=== PATIENT | male | born 1985 | race Caucasian/White ===

== ENCOUNTER 2017-05-25 11:17 | Emergency (ER) | payer OTHER ==
[2017-05-25 11:25] VITALS: BP 137/72; PULSE 88; RESP 18; TEMP 97.2
--- NOTE | 2017-05-25 11:51 | ED ---
ENT HPI - General Chief complaint: Dental/Oral Stated complaint: DENTAL PAIN, ABSCESS Time Seen by Provider: 05/25/17 11:26 Source: patient, RN notes reviewed Mode of arrival: ambulatory Limitations: no limitations - History of Present Illness Initial comments: 31-year-old male presents emergency Department with chief complaint of right lower dental pain. Patient states he has had dental pain and swelling over last couple days. Patient's had poor dentition and states that he's had dental infections in the past. Patient denies fever, chills, headache, dizziness, neck stiffness or neck pain. He has not contacted his dentist at this time. - Related Data Previous Rx's Medication Instructions Recorded Hydrocodone/Acetaminophen [[place] 1 tab PO Q6HR PRN #20 tab 05/25/17 5-325] Penicillin V Potassium [Pen Vee K] 500 mg PO QID #40 tab 05/25/17 Allergies Allergy/AdvReac Type Severity Reaction Status Date / Time No Known Allergies Allergy Verified 05/25/17 11:42 Review of Systems ROS Statement: Those systems with pertinent positive or pertinent negative responses have been documented in the HPI. ROS Other: All systems not noted in ROS Statement are negative. Past Medical History Past Medical History: No Reported History Additional Past Medical History / Comment(s): SCOLIOSIS. ARTHRITIS. HEADACHES History of Any Multi-Drug Resistant Organisms: None Reported, MRSA Date of last positivie culture/infection: 2014 MDRO Source:: thigh Additional Past Surgical History / Comment(s): MOLE REMOVED Past Psychological History: ADD/ADHD, Anxiety, Bipolar Smoking Status: Current every day smoker Past Alcohol Use History: Rare Past Drug Use History: None Reported General Exam Limitations: no limitations General appearance: alert, in no apparent distress Head exam: Present: atraumatic, normocephalic, normal inspection Eye exam: Present: normal appearance, PERRL, EOMI. Absent: scleral icterus, conjunctival injection, periorbital swelling ENT exam: Present: mucous membranes moist. Absent: normal exam, normal oropharynx (Right lower dental swelling, poor dentition, no drainable abscess noted) Neck exam: Present: normal inspection, full ROM. Absent: tenderness, meningismus, lymphadenopathy Respiratory exam: Present: normal lung sounds bilaterally. Absent: respiratory distress, wheezes, rales, rhonchi, stridor Cardiovascular Exam: Present: regular rate, normal rhythm, normal heart sounds. Absent: systolic murmur, diastolic murmur, rubs, gallop, clicks Course Vital Signs 05/25/17 11:21 Temperature 97.2 F L Pulse Rate 88 Respiratory 18 Rate Blood Pressure 137/72 O2 Sat by Pulse 100 Oximetry Medical Decision Making - Medical Decision Making 31-year-old male presented emergency from for dental pain, facial swelling. Patient has a dental infection was started on antibiotics, pain medication advised follow-up with dentist within 2 days return if symptoms worsen. Disposition Clinical Impression: Dental abscess, Toothache Disposition: HOME SELF-CARE Condition: Stable Instructions: Dental Abscess (ED) Additional Instructions: Please return to the Emergency Department if symptoms worsen or any other concerns. Prescriptions: Hydrocodone/Acetaminophen [[place] 5-325] 1 tab PO Q6HR PRN #20 tab PRN Reason: Pain Penicillin V Potassium [Pen Vee K] 500 mg PO QID #40 tab Referrals: Edwin Roland MD [Primary Care Provider] - 1-2 days Time of Disposition: 11:50
== END 2017-05-25 12:08 | disposition home or self-care (01) ==
LOC: EC 11:17
DX: K04.7 Periapical abscess without sinus (principal); F17.200 Nicotine dependence, unspecified, uncomplicated; Z86.14 Personal history of Methicillin resistant Staphylococcus aureus infection
CPT/HCPCS: 99282

== ENCOUNTER 2017-09-10 18:03 | Emergency (ER) | payer OTHER ==
[2017-09-10 18:11] VITALS: BP 146/94; PULSE 87; RESP 17; TEMP 97.5
[2017-09-10] MEDS ORDERED: ACETAMINOPHEN TAB 500 MG TAB PO STA (18:29)
--- NOTE | 2017-09-10 18:54 | XR ---
Exam: Left shoulder complete TECHNIQUE: 4 views left shoulder were obtained. HISTORY: Left shoulder pain. FINDINGS: No acute fracture subluxation is identified. Visualized soft tissue structures are unremarkable. IMPRESSION: No abnormality.
--- NOTE | 2017-09-10 19:01 | ED ---
Upper Extremity HPI - General Chief Complaint: Extremity Injury, Upper Stated Complaint: Shoulder Pain Time Seen by Provider: 09/10/17 18:15 Source: patient Mode of arrival: ambulatory Limitations: no limitations - History of Present Illness Initial Comments: 32-year-old male patient presents to the emergency department today for evaluation of left shoulder pain. Patient states that the pain started around 3 PM after he got home from community service. States that he was clearing a lot of brush from the cemeteries this afternoon. He states that his shoulder feels weird and he knows something is wrong with it. He reports increased pain with movement. He tries any known injury to the shoulder. Denies any numbness or tingling in the left upper extremity. He denies taking anything for his discomfort. Patient denies any headache, neck pain, back pain, chest pain, shortness of breath, dizziness, weakness, abdominal pain, nausea, vomiting, or difficulties with bowel movements or urination. - Related Data Home Medications Medication Instructions Recorded Confirmed Aspirin EC [Ecotrin Low Dose] 243 mg PO ONCE PRN 09/10/17 09/10/17 Previous Rx's Medication Instructions Recorded Ibuprofen [Motrin] 600 mg PO Q8HR PRN #30 tab 09/10/17 Allergies Allergy/AdvReac Type Severity Reaction Status Date / Time No Known Allergies Allergy Verified 09/10/17 18:14 Review of Systems ROS Statement: Those systems with pertinent positive or pertinent negative responses have been documented in the HPI. ROS Other: All systems not noted in ROS Statement are negative. Past Medical History Past Medical History: No Reported History Additional Past Medical History / Comment(s): SCOLIOSIS. ARTHRITIS. HEADACHES History of Any Multi-Drug Resistant Organisms: None Reported, MRSA Date of last positivie culture/infection: 2014 MDRO Source:: thigh Additional Past Surgical History / Comment(s): MOLE REMOVED Past Psychological History: ADD/ADHD, Anxiety, Bipolar Smoking Status: Current every day smoker Past Alcohol Use History: Rare Past Drug Use History: None Reported General Exam Limitations: no limitations General appearance: alert, in no apparent distress, other (this is a well- developed, well-nourished adult male patient in no acute distress. Vital signs upon presentation are temperature 97.5F, pulse 87, respirations 17, blood pressure 146/94, pulse ox 96% on room air.) Eye exam: Present: normal appearance, PERRL, EOMI. Absent: scleral icterus, conjunctival injection, periorbital swelling ENT exam: Present: normal exam, normal oropharynx, mucous membranes moist Neck exam: Present: normal inspection, full ROM. Absent: tenderness, meningismus, lymphadenopathy Respiratory exam: Present: normal lung sounds bilaterally. Absent: respiratory distress, wheezes, rales, rhonchi, stridor Cardiovascular Exam: Present: regular rate, normal rhythm, normal heart sounds. Absent: systolic murmur, diastolic murmur, rubs, gallop, clicks GI/Abdominal exam: Present: soft, normal bowel sounds. Absent: distended, tenderness, guarding, rebound, rigid Extremities exam: Present: normal inspection, full ROM (full range of motion of the left shoulder however patient reports increased movement with abduction, forward flexion, and extension.), tenderness (over the acromioclavicular joint and the anterior shoulder), normal capillary refill, other (Skin to the left upper extremity is pink, warm, and dry. Cap refills less than 3 seconds. Radial pulses 2+ and equal bilaterally.). Absent: pedal edema, joint swelling, calf tenderness Back exam: Present: normal inspection. Absent: tenderness, rash noted Neurological exam: Present: alert, oriented X3, CN II-XII intact Psychiatric exam: Present: normal affect, normal mood Skin exam: Present: warm, dry, intact, normal color. Absent: rash Course Vital Signs 09/10/17 18:07 Temperature 97.5 F L Pulse Rate 87 Respiratory 17 Rate Blood Pressure 146/94 O2 Sat by Pulse 96 Oximetry Medical Decision Making - Medical Decision Making 32-year-old male patient presented to the emergency department today for evaluation of left shoulder pain. Physical examination did reveal some tenderness over the before meals joint in the anterior shoulder. Neurovascular status was intact. X-ray was reviewed and showed no acute abnormalities. I did look at the image myself along with my attending Dr. Fan who does see some degenerative changes of the left acromioclavicular joint. I did discuss these findings with the patient informed him that his pain could be related to arthritis. He is instructed to take ibuprofen for pain control. He is instructed to do gentle range of motion exercises. He is instructed to follow- up with his primary care physician for recheck in 1-2 days. He is instructed to return here immediately for any new, worsening, or concerning symptoms. He verbalizes understanding and agrees with this plan. - Radiology Data Radiology results: report reviewed, image reviewed 4 views of the left shoulder are obtained and showed no acute fracture or subluxation of the shoulder. Visualized soft tissue structures are unremarkable. Impression by Dr. Wang shows no abnormality. Disposition Clinical Impression: Injury of left shoulder Disposition: HOME SELF-CARE Condition: Good Instructions: Shoulder Pain (ED) Additional Instructions: Rest and ice the shoulder. Gentle range of motion exercises. Take ibuprofen and Tylenol for pain control. Return here immediate for any new, worsening, or concerning symptoms. Prescriptions: Ibuprofen [Motrin] 600 mg PO Q8HR PRN #30 tab PRN Reason: Pain Referrals: Edwin Roland MD [Primary Care Provider] - 1-2 days Time of Disposition: 19:01
== END 2017-09-10 19:12 | disposition home or self-care (01) ==
LOC: EC 18:03
DX: S49.92XA Unspecified injury of left shoulder and upper arm, initial encounter (principal); F17.200 Nicotine dependence, unspecified, uncomplicated; Z86.14 Personal history of Methicillin resistant Staphylococcus aureus infection; X50.0XXA Overexertion from strenuous movement or load, initial encounter; Y93.89 Activity, other specified
CPT/HCPCS: 99283

== ENCOUNTER 2020-02-06 17:04 | Emergency (ER) | payer OTHER ==
[2020-02-06 17:14] VITALS: RESP 18
[2020-02-06] MEDS ORDERED: SODIUM CHLORIDE 0.9% 1,000 ML IV STA (17:39)
[2020-02-06] MEDS ORDERED: KETOROLAC 30 MG/ML 1 ML VIAL IVP STA (17:39)
--- NOTE | 2020-02-06 18:05 | ED ---
Chest Pain HPI - General Chief Complaint: Chest Pain Stated Complaint: Chest pain Time Seen by Provider: 02/06/20 17:10 Source: patient Mode of arrival: ambulatory Limitations: no limitations - History of Present Illness Initial Comments: The patient is a 34-year-old male with past nuchal history of scoliosis and headaches presents emergency room with reported pleuritic chest pain. He states the pain has been going on for the past 3 months. Denies fevers or chills. No history of DVT or PE. No recent upper respiratory infections. Denies any feve rs or chills. Patient smokes marijuana and tobacco. Denies use of vaping. Denies history of intravenous drug use. He follow-up primary care doctor who did an EKG. Placed him on Ultram and Motrin. Patient is to take medications as directed however pain persists. He also admits to palpitations. No ripping or tearing sensation to his back. No numbness, tingling or weakness in his extremities. There are no other alleviating, Perceptin or modifying factors - Related Data Home Medications Medication Instructions Recorded Confirmed Aspirin EC [Ecotrin Low Dose] 243 mg PO ONCE PRN 09/10/17 09/10/17 Previous Rx's Medication Instructions Recorded Ibuprofen [Motrin] 600 mg PO Q8HR PRN #30 tab 09/10/17 Hydrocodone/Acetaminophen [[place] 1 tab PO Q6HR PRN #12 tab 02/06/20 5-325] Naproxen [Naprosyn] 500 mg PO Q12HR #30 tab 02/06/20 Allergies Allergy/AdvReac Type Severity Reaction Status Date / Time No Known Allergies Allergy Verified 09/10/17 18:14 Review of Systems ROS Statement: Those systems with pertinent positive or pertinent negative responses have been documented in the HPI. ROS Other: All systems not noted in ROS Statement are negative. EKG Findings - EKG Comments: EKG Findings:: EKG demonstrates a sinus tachycardia with a ventricular rate of 104. NM interval 144. QRS 94. QTC of 433. There is some J-point elevation. No reciprocal changes. No acute ST segment elevation. Past Medical History Past Medical History: COPD Additional Past Medical History / Comment(s): SCOLIOSIS. ARTHRITIS. HEADACHES History of Any Multi-Drug Resistant Organisms: None Reported, MRSA Date of last positivie culture/infection: 2014 MDRO Source:: thigh Additional Past Surgical History / Comment(s): MOLE REMOVED Past Psychological History: ADD/ADHD, Anxiety, Bipolar Smoking Status: Current every day smoker Past Alcohol Use History: Rare Past Drug Use History: None Reported General Exam Limitations: no limitations General appearance: alert, in no apparent distress Head exam: Present: atraumatic, normocephalic, normal inspection Eye exam: Present: normal appearance, PERRL, EOMI. Absent: scleral icterus, conjunctival injection, periorbital swelling ENT exam: Present: normal exam, mucous membranes moist Neck exam: Present: normal inspection. Absent: tenderness, meningismus, lymphadenopathy Respiratory exam: Present: normal lung sounds bilaterally. Absent: respiratory distress, wheezes, rales, rhonchi, stridor Cardiovascular Exam: Present: normal rhythm, tachycardia, normal heart sounds. Absent: systolic murmur, diastolic murmur, rubs, gallop, clicks GI/Abdominal exam: Present: soft, normal bowel sounds. Absent: distended, tenderness, guarding, rebound, rigid Extremities exam: Present: normal inspection, full ROM, normal capillary refill. Absent: tenderness, pedal edema, joint swelling, calf tenderness Back exam: Present: normal inspection Neurological exam: Present: alert, oriented X3, CN II-XII intact Psychiatric exam: Present: normal affect, normal mood Skin exam: Present: warm, dry, intact, normal color. Absent: rash Course Vital Signs 02/06/20 02/06/20 02/06/20 17:10 18:30 22:23 Temperature 99.3 F 98.2 F Pulse Rate 117 H 92 68 Respiratory 18 18 18 Rate Blood Pressure 123/79 114/58 128/94 O2 Sat by Pulse 97 95 100 Oximetry Chest Pain MDM - MDM Upon arrival the patient is placed in room 3. A thorough history and physical exam is performed. Patient does have a 12-lead EKG performed which demonstrates a sinus tachycardia. Laboratory studies were conducted. Patient does have an elevated d-dimer of 1.09. Because of this he is sent over for a CT of his chest. CTA demonstrates no acute findings. I did discuss results with the patient. He was given 15 mg of Toradol does have improvement in his pain. I did discuss the diagnosis, differential treatment options. At this time he did recommend the patient be discharged home follow-up with primary care doctor. He may benefit from seeing the cardiology office. I did recommend an echo and Holter monitoring. The patient will be switched from Motrin to Naprosyn. I will also switch the patient from Ultram to [place]. He is given a three-day supply after side effect profile discussed. Patient is instructed to take this medication while he is at home and not in conjunction with his trazodone and muscle relaxer. Patient understood this. He has any new or worsening symptoms to return to the emergency room. Patient's heart rate has normalized upon discharge. Patient discharged home in stable condition Disposition Clinical Impression: Chest pain, Anterior pleuritic pain Disposition: HOME SELF-CARE Condition: Stable Instructions (If sedation given, give patient instructions): Chest Pain (ED) Additional Instructions: Please substitute taking the Motrin with the Naprosyn. Also stop taking Ultram and begin taking the [place]. [facility] with [facility] for further cardiac evaluation. Return to the emergency room for any new or worsening symptoms Prescriptions: Naproxen [Naprosyn] 500 mg PO Q12HR #30 tab Hydrocodone/Acetaminophen [[place] 5-325] 1 tab PO Q6HR PRN #12 tab PRN Reason: Pain Is patient prescribed a controlled substance at d/c from ED?: Yes When asked, does pt state using other controlled substances?: No If prescribed controlled substance>3 days was MAPS reviewed?: Prescribed <3 Days If opioid is for acute pain is fill amount 7 days or less?: Yes If Rx opioid, was Start Talking consent form obtained?: Yes Referrals: Edwin Roland MD [Primary Care Provider] - 1-2 days [facility] [Provider Group] - 1-2 days Time of Disposition: 22:10
--- NOTE | 2020-02-06 18:20 | XR ---
EXAMINATION TYPE: XR chest 2V DATE OF EXAM: 02/06/2020 COMPARISON: 05/15/2015 HISTORY: Syncope TECHNIQUE: FINDINGS: Heart and mediastinum are normal. Lungs are clear. Diaphragm is normal. There are chest sadia ds. Bony thorax appears normal. IMPRESSION: Normal chest. No change.
[2020-02-06 18:23] LABS: Basophils # (A) 0.1 k/uL (0-0.2); Basophils % (A) 1 %; Eosinophils # (A) 0.2 k/uL (0-0.7); Eosinophils % (A) 3 %; HCT 42.7 % (39.0-53.0); HGB 14.8 gm/dL (13.0-17.5); Lymphocytes # (A) 2.5 k/uL (1.0-4.8); Lymphocytes % (A) 32 %; MCH 29.9 pg (25.0-35.0); MCHC 34.7 g/dL (31.0-37.0); MCV 86.1 fL (80.0-100.0); Mean Platelet Volume 7.1; Monocytes # (A) 0.4 k/uL (0-1.0); Monocytes % (A) 5 %; Neutrophils # (A) 4.5 k/uL (1.3-7.7); Neutrophils % (A) 58 %; Platelet Count 289 k/uL (150-450); RBC 4.96 m/uL (4.30-5.90); RDW 13.1 % (11.5-15.5); WBC 7.7 k/uL (3.8-10.6)
[2020-02-06 18:30] LABS: ALT 20 U/L (4-49); AST 28 U/L (17-59); African American GFR (CKD) >90 (>60 ml/min/1.73 sqM); Alkaline Phosphatase 135 U/L (38-126); Anion Gap 5 mmol/L; Blood Urea Nitrogen 13 mg/dL (9-20); C Reactive Protein 13.9 mg/L (<10.0); Calcium 9.4 mg/dL (8.4-10.2); Carbon Dioxide 23 mmol/L (22-30); Chloride 108 mmol/L (98-107); Glucose 136 mg/dL (74-99); Magnesium 2.1 mg/dL (1.6-2.3); Non-African American GFR(CKD) >90 (>60 ml/min/1.73 sqM); Potassium 4.1 mmol/L (3.5-5.1); Sodium 136 mmol/L (137-145); Total Bilirubin 0.3 mg/dL (0.2-1.3); Total Protein 6.7 g/dL (6.3-8.2)
[2020-02-06 18:40] LABS: Partial Thromboplastin Time 27.3 sec (22.0-30.0); Prothrombin Time 10.3 sec (9.0-12.0)
[2020-02-06 18:47] LABS: D-Dimer 1.09 mg/L FEU (<0.60)
[2020-02-06 19:25] LABS: Erythrocyte Sedimentation Rate 8 mm/hr (0-15)
--- NOTE | 2020-02-06 19:33 | CT ---
EXAMINATION TYPE: CT chest angio for PE DATE OF EXAM: 02/06/2020 COMPARISON: None HISTORY: ELEVATED D-DIMER, TACHYCARDIA, CHEST PAIN CT DLP: 467.7 mGycm Automated exposure control for dose reduction was used. CONTRAST: Performed with IV Contrast, patient injected with 100 mL of Isovue 370. Images were obtained from the thoracic inlet to the diaphragm with IV contrast and 3-D post processed images. The lungs are clear of infiltrate. There is no pleural effusion. There is no pericardial effusion. Heart size is normal. There are no hilar masses. There is no mediastinal adenopathy. Thoracic aorta a ppears intact. There is no aneurysm or dissection. There is normal contrast opacification of the pulmonary arteries. I see no filling defect. Thoracic v ertebra have normal spacing and alignment. There is no compression fracture. Sternum is intact. The r ibs appear intact. Upper abdominal soft tissues appear normal. IMPRESSION: Negative exam. No evidence of pulmonary embolism.
[2020-02-06 22:24] VITALS: BP 128/94; PULSE 68; TEMP 98.2
== END 2020-02-06 22:24 | disposition home or self-care (01) ==
LOC: EC 17:04
DX: R07.9 Chest pain, unspecified (principal); R07.1 Chest pain on breathing; R00.0 Tachycardia, unspecified; F17.200 Nicotine dependence, unspecified, uncomplicated
CPT/HCPCS: 36415; 93005; 85379; 80053; 85652; 83690; 83735; 84484; 85025; 85610; 85730; 86140; 71046; 71275; 99285; 96374; 96361 ×3; J1885; Q9967

== ENCOUNTER 2020-04-12 21:32 | Emergency (ER) | payer OTHER ==
[2020-04-12 22:00] LABS: Basophils # (A) 0.1 k/uL (0-0.2); Basophils % (A) 1 %; Eosinophils # (A) 0.3 k/uL (0-0.7); Eosinophils % (A) 4 %; HCT 46.4 % (39.0-53.0); HGB 15.9 gm/dL (13.0-17.5); Lymphocytes # (A) 3.7 k/uL (1.0-4.8); Lymphocytes % (A) 40 %; MCH 29.8 pg (25.0-35.0); MCHC 34.3 g/dL (31.0-37.0); MCV 86.6 fL (80.0-100.0); Mean Platelet Volume 6.7; Monocytes # (A) 0.5 k/uL (0-1.0); Monocytes % (A) 5 %; Neutrophils # (A) 4.5 k/uL (1.3-7.7); Neutrophils % (A) 48 %; Platelet Count 304 k/uL (150-450); RBC 5.35 m/uL (4.30-5.90); RDW 12.9 % (11.5-15.5); WBC 9.3 k/uL (3.8-10.6)
--- NOTE | 2020-04-12 22:01 | XR ---
EXAMINATION TYPE: XR chest 2V DATE OF EXAM: 04/12/2020 COMPARISON: 02/06/2020 HISTORY: Chest pain TECHNIQUE: FINDINGS: Heart and mediastinum are normal. Lungs are clear. Diaphragm is normal. Bony thorax appears normal. There are chest leads. IMPRESSION: Normal chest. No change.
[2020-04-12 22:14] LABS: D-Dimer 0.39 mg/L FEU (<0.60); Partial Thromboplastin Time 27.4 sec (22.0-30.0)
[2020-04-12 22:15] LABS: ALT 19 U/L (4-49); AST 39 U/L (17-59); African American GFR (CKD) >90 (>60 ml/min/1.73 sqM); Albumin 4.5 g/dL (3.5-5.0); Alkaline Phosphatase 134 U/L (38-126); Anion Gap 6 mmol/L; Blood Urea Nitrogen 12 mg/dL (9-20); Calcium 9.5 mg/dL (8.4-10.2); Carbon Dioxide 24 mmol/L (22-30); Chloride 107 mmol/L (98-107); Glucose 101 mg/dL (74-99); Magnesium 2.1 mg/dL (1.6-2.3); Non-African American GFR(CKD) >90 (>60 ml/min/1.73 sqM); Potassium 4.1 mmol/L (3.5-5.1); Sodium 137 mmol/L (137-145); Total Bilirubin 0.5 mg/dL (0.2-1.3); Total Protein 7.1 g/dL (6.3-8.2)
--- NOTE | 2020-04-12 22:39 | ED ---
Chest Pain HPI - General Chief Complaint: Chest Pain Stated Complaint: Chest Pains Time Seen by Provider: 04/12/20 21:40 Source: patient Mode of arrival: ambulatory Limitations: no limitations - History of Present Illness Initial Comments: 34-year-old male presenting to the emergency department today for chief complaint of chest pain he states has been ongoing for 6 months he states he was previously told he may have pleurisy. Patient describes the pain as sharp, occurs with eating/drinking often times. Denies any chest pressure jaw pain or arm pain he denies a ripping tearing sensation of the back. Patient denies any specific abdominal pain. Denies vomiting, diarrhea, fevers. Denies pain with deep breathing, hemoptyssi, leg swelling, history of DVT/PE, recent surgeries, immobilization, patient denies history of fevers IV drug use or cancer. Patient is no additional complaints upon arrival he appears well nontoxic in no acute distress. - Related Data Home Medications Medication Instructions Recorded Confirmed Aspirin EC [Ecotrin Low Dose] 243 mg PO ONCE PRN 09/10/17 09/10/17 Previous Rx's Medication Instructions Recorded Ibuprofen [Motrin] 600 mg PO Q8HR PRN #30 tab 09/10/17 Hydrocodone/Acetaminophen [[place] 1 tab PO Q6HR PRN #12 tab 02/06/20 5-325] Naproxen [Naprosyn] 500 mg PO Q12HR #30 tab 02/06/20 Allergies Allergy/AdvReac Type Severity Reaction Status Date / Time No Known Allergies Allergy Verified 04/12/20 21:35 Review of Systems ROS Statement: Those systems with pertinent positive or pertinent negative responses have been documented in the HPI. ROS Other: All systems not noted in ROS Statement are negative. Past Medical History Past Medical History: COPD Additional Past Medical History / Comment(s): SCOLIOSIS. ARTHRITIS. HEADACHES History of Any Multi-Drug Resistant Organisms: None Reported, MRSA Date of last positivie culture/infection: 2014 MDRO Source:: thigh Additional Past Surgical History / Comment(s): MOLE REMOVED Past Psychological History: ADD/ADHD, Anxiety, Bipolar Smoking Status: Current every day smoker Past Alcohol Use History: Rare Past Drug Use History: Marijuana General Exam - General Exam Comments Initial Comments: General: The patient is awake and alert, in no distress Eye: +3 mm pupils are equal, round and reactive to light, extra-ocular movements are intact. No nystagmus. There is normal conjunctiva bilaterally. No signs of icterus. Ears, nose, mouth and throat: There are moist mucous membranes and no oral lesions. Neck: The neck is supple, there is no tenderness or JVD. Cardiovascular: There is a regular rate and rhythm. No murmur, rub or gallop is appreciated. Respiratory: Lungs are clear to auscultation, respirations are non-labored, breath sounds are equal. No wheezes, stridor, rales, or rhonchi. Gastrointestinal: Soft, non-distended, non-tender abdomen without masses or organomegaly noted. There is no rebound or guarding present Musculoskeletal: Normal ROM, no tenderness. Strength 5/5. Sensation intact. Radial pulses equal bilaterally 2+. Neurological: A&O x 3. CN II-XII intact grossly, There are no obvious motor or sensory deficits. Coordination appears grossly intact. Speech is normal. Skin: Skin is warm and dry and no rashes or lesions are noted. NO LE edema. No calf pain . Psychiatric: Cooperative, appropriate mood & affect, normal judgment. Limitations: no limitations Course Vital Signs 04/12/20 04/12/20 21:33 22:35 Temperature 98.0 F 98.1 F Pulse Rate 107 H 81 Respiratory 20 18 Rate Blood Pressure 151/108 140/97 O2 Sat by Pulse 99 97 Oximetry Chest Pain MDM - MDM 34-year-old male presenting today for chief complaint of chest pain ongoing for 6 months sharp in nature and localized to the lower aspect of the left side of the chest. No murmur on exam no peripheral findings. Patient CXR clear. Labs stable he appears well nontoxic. Patient does state symptoms occur with eating no epigastric or RUQ pain on exam. No current chest pain. patient may have a GI cause. I do not feel this is typical nor cardiac chest pain. Patient case and EKG revidwed with Dr. Armenta who is agreeable to care plan and discharge. Disposition Clinical Impression: Chest pain Disposition: HOME SELF-CARE Condition: Good Instructions (If sedation given, give patient instructions): Chest Pain (ED) Additional Instructions: Please use medication as discussed. Please follow-up with family doctor in the next 2 days, cardiology as scheduled next month and I recommend having possible upper endoscopy by GI.Please return to emergency room if the symptoms increase or worsen or for any other concerns. Is patient prescribed a controlled substance at d/c from ED?: No Referrals: Edwin Roland MD [Primary Care Provider] - 1-2 days Miryam Ratliff MD [STAFF PHYSICIAN] - 1-2 days Time of Disposition: 22:38
[2020-04-12 22:48] VITALS: BP 140/97; PULSE 81; RESP 18; TEMP 98.1
== END 2020-04-12 22:55 | disposition home or self-care (01) ==
LOC: EC 21:32
DX: R07.9 Chest pain, unspecified (principal); M19.90 Unspecified osteoarthritis, unspecified site; R51 Headache; F17.200 Nicotine dependence, unspecified, uncomplicated; Z86.14 Personal history of Methicillin resistant Staphylococcus aureus infection
CPT/HCPCS: 36415; 71046; 80053; 83735; 84484; 85025; 85379; 85610; 85730; 93005; 99285

== ENCOUNTER → 2020-04-21 | Outpatient (CLI) | payer OTHER | END | disposition home or self-care (01) | LOC: RADFLMAIN 09:21 | PROVIDERS: ATTEND Family Medicine | DX: Z53.9 Procedure and treatment not carried out, unspecified reason (principal) ==

== ENCOUNTER → 2020-04-22 | Outpatient (CLI) | payer OTHER ==
--- NOTE | 2020-04-22 11:37 | FL ---
EXAMINATION TYPE: FL UGI w esophagus w sm bowel DATE OF EXAM: 04/22/2020 COMPARISON: NONE HISTORY: Dysphasia, chest pain, lower abdominal pain for 5 months TECHNIQUE: A double contrast UGI study is performed with small bowel follow through. FINDINGS: [employer] image of the abdomen shows no gross abnormality. The esophagus shows normal motility and emptying into the stomach. No evidence of hiatal hernia or s tricture noted. There is gastroesophageal reflux identified to the level of the cervical esophagus. The stomach shows normal distensibility, peristalsis, and mucosal folds. No evidence of any mass or ulcer disease. No significant esophageal reflux was seen during real time performance of this study. The duodenal bulb and sweep are unremarkable. The small bowel study shows normal transit to the colon. There is normal mucosal fold pattern throug hout the small bowel. There is no evidence of any stricture or filling defect noted. The terminal i leum is unremarkable. 65 images obtained, pre-point 2 7 minutes supplied fluoroscopy. IMPRESSION: Significant gastroesophageal reflux
== END | disposition home or self-care (01) ==
LOC: RADFLMAIN 07:56
PROVIDERS: ATTEND Family Medicine
DX: K21.9 Gastro-esophageal reflux disease without esophagitis (principal)
CPT/HCPCS: 74240; 74248

== ENCOUNTER → 2020-07-13 | Outpatient (CLI) | payer OTHER ==
--- NOTE | 2020-07-13 16:37 | XR ---
EXAMINATION TYPE: XR shoulder complete LT DATE OF EXAM: 07/13/2020 Comparison: 09/10/2017 Clinical History: 34-year-old male left shoulder pain, M75.22 Findings: Stable cortical dimple along the superior midclavicular shaft, probably a nutrient foramen. Moderate degenerative change at the AC joint with marginal spurring and joint space narrowing. Subacromial spa ce is preserved. Smooth delineation to the greater to velocity. No acute fracture, subluxation, or di slocation. Impression: Moderate AC joint OA. There is prominent marginal spurring. Correlate for any symptoms of subacromial impingement.
--- NOTE | 2020-07-13 16:42 | XR ---
EXAMINATION TYPE: XR scoliosis survey, 2 views DATE OF EXAM: 07/13/2020 Comparison: None Clinical History: 34 year-old male M41.9 Findings: Gentle S-shaped curvature of the thoracolumbar spine. Rightward thoracic Aquino angle 10 degrees. Leftw anders upper lumbar Aquino angle is 12 degrees. 5 lumbar type vertebral bodies. Mild degenerative disc dis ease lower thoracic spine with mild endplate spondylosis and mild disc space narrowing. Slightly acce ntuated lumbar lordosis. Some minimal anterior physiologic wedging of T12 vertebral body. Impression: Gentle S-shaped scoliotic curvature with Aquino angles of 10 and 12 degrees.
== END | disposition home or self-care (01) ==
LOC: RADXRMAIN 15:45
PROVIDERS: ATTEND Family Medicine
DX: M19.012 Primary osteoarthritis, left shoulder (principal); M41.85 Other forms of scoliosis, thoracolumbar region; M75.22 Bicipital tendinitis, left shoulder
CPT/HCPCS: 72082

== ENCOUNTER 2020-11-16 11:31 | Day surgery (SDC) | payer OTHER ==
[2020-11-13 11:13] VITALS: BMI 32.5
[2020-11-16 12:26] VITALS: TEMP 98.4
[2020-11-16] MEDS ORDERED: LACTATED RINGERS 1,000 ML IV ONE ×2 (12:40)
[2020-11-16] MEDS ORDERED: PROPOFOL 10 MG/ML 20 ML VIAL IV ONE (13:32)
[2020-11-16] MEDS ORDERED: LIDOCAINE 1% INJ 10MG/ML (20 ML MDV) ONE (13:32)
[2020-11-16 14:01] VITALS: RESP 16
[2020-11-16 14:11] VITALS: BP 110/74; PULSE 85
--- NOTE | 2020-11-16 15:46 | P.GSHP ---
History of Present Illness H&P Date: 11/16/20 Chief Complaint: gerd This is a 35-year-old male who presents today for EGD. He's had issues GERD. Past Medical History Past Medical History: COPD, GERD/Reflux, Osteoarthritis (OA) Additional Past Medical History / Comment(s): "difficulty swallowing and spitting out acid reflux" SCOLIOSIS,ARTHRITIS,HEADACHES History of Any Multi-Drug Resistant Organisms: MRSA Date of last positivie culture/infection: 2014 MDRO Source:: thigh Additional Past Surgical History / Comment(s): MOLE REMOVED Past Anesthesia/Blood Transfusion Reactions: No Reported Reaction Additional Past Anesthesia/Blood Transfusion Reaction / Comment(s): no hx blood transfusion Smoking Status: Current every day smoker - Past Family History Mother Family Medical History: No Reported History Medications and Allergies Home Medications Medication Instructions Recorded Confirmed Type Cyclobenzaprine [Flexeril] 20 mg PO BID 09/23/20 11/16/20 History Ergocalciferol [Vitamin D2 (1250 1,250 mcg PO QMONTHLY 09/23/20 11/16/20 History Mcg = [id number] Iu)] HYDROcodone/APAP 7.5-325MG [[place] 1 tab PO BID 09/23/20 11/16/20 History 7.5-325] Omeprazole [PriLOSEC] 20 mg PO AC-BID 09/23/20 11/16/20 History buPROPion XL [Wellbutrin Xl] 150 mg PO QAM 09/23/20 11/16/20 History traZODone HCL [Desyrel] 50 mg PO HS 09/23/20 11/16/20 History Albuterol Inhaler [Ventolin Hfa 2 puff INHALATION RT-QID PRN 11/13/20 11/16/20 History Inhaler] Naproxen [Naprosyn] 500 mg PO Q12HR 11/13/20 11/16/20 History Allergies Allergy/AdvReac Type Severity Reaction Status Date / Time No Known Allergies Allergy Verified 11/16/20 12:27 Surgical - Exam Vital Signs Temp Pulse Resp BP Pulse Ox 98.4 F 89 18 122/81 97 11/16/20 12:22 11/16/20 12:22 11/16/20 12:22 11/16/20 12:22 11/16/20 12:22 - General well developed, well nourished, no distress - Eyes PERRL - ENT normal pinna - Neck no masses - Respiratory normal expansion - Cardiovascular Rhythm: regular - Abdomen Abdomen: soft, non tender Assessment and Plan Assessment: GERD. We'll perform EGD.
--- NOTE | 2020-11-16 15:49 | P.OP ---
Date of Procedure: 11/16/20 Preoperative Diagnosis: gerd Postoperative Diagnosis: Small hiatal hernia Esophagitis Mild antral gastritis Anesthesia: MAC Surgeon: Fernando French Pathology: other (esophagus, antrum) Condition: stable Disposition: PACU Description of Procedure: the patient's placed on the endoscopy table in the lateral position. He received IV sedation. The gastroscope placed oropharynx passed in the esophagus into the stomach. Scope was then placed through the pylorus. The first and second portion of the duodenum appeared normal. Scope was then brought back the antrum this was mildly inflamed. A biopsies performed. Scope was then retroflexed and the remainder stomach appeared normal. The patient had a very small hiatal hernia. The GE junction was at 40 cm. The distal esophagus was mildly inflamed and a biopsy performed. The proximal esophagus appeared normal. Scope was withdrawn for patient.
== END 2020-11-16 14:23 | disposition home or self-care (01) ==
LOC: ORWHC2ENDO 11:31
PROVIDERS: ATTEND Surgery
DX: K21.00 Gastro-esophageal reflux disease with esophagitis, without bleeding (principal); K29.50 Unspecified chronic gastritis without bleeding; K44.9 Diaphragmatic hernia without obstruction or gangrene; J44.9 Chronic obstructive pulmonary disease, unspecified; M19.90 Unspecified osteoarthritis, unspecified site; M41.9 Scoliosis, unspecified; F17.210 Nicotine dependence, cigarettes, uncomplicated; Z86.14 Personal history of Methicillin resistant Staphylococcus aureus infection; Z98.890 Other specified postprocedural states; Z79.899 Other long term (current) drug therapy; Z79.891 Long term (current) use of opiate analgesic; Z79.1 Long term (current) use of non-steroidal anti-inflammatories (NSAID)
CPT/HCPCS: 88305; 43239; J2001; J2704

== ENCOUNTER 2022-06-22 07:55 | Observation (INO) | payer OTHER ==
[2022-06-22] MEDS ORDERED: AMPICILLIN-SULBACTAM 3 GM in SODIUM CHLORIDE 0.9% 100 ML IVPB STA (08:18)
[2022-06-22] MEDS ORDERED: DEXAMETHASONE SOD PHOSPHATE 10 MG/ML 1 ML VIAL IVP STA (08:18)
[2022-06-22] MEDS ORDERED: SODIUM CHLORIDE 0.9% 1,000 ML IV STA (08:21)
[2022-06-22 08:49] LABS: Basophils # (A) 0.1 k/uL (0-0.2); Basophils % (A) 1 %; Eosinophils # (A) 0.3 k/uL (0-0.7); Eosinophils % (A) 2 %; HCT 45.5 % (39.0-53.0); HGB 16.2 gm/dL (13.0-17.5); Lymphocytes # (A) 2.1 k/uL (1.0-4.8); Lymphocytes % (A) 17 %; MCHC 35.5 g/dL (31.0-37.0); MCV 84.6 fL (80.0-100.0); Mean Platelet Volume 7.6; Monocytes # (A) 0.6 k/uL (0-1.0); Monocytes % (A) 5 %; Neutrophils # (A) 8.9 k/uL (1.3-7.7); Neutrophils % (A) 74 %; Platelet Count 228 k/uL (150-450); RBC 5.38 m/uL (4.30-5.90)
[2022-06-22 08:59] LABS: African American GFR (CKD) >90 (>60 ml/min/1.73 sqM); Anion Gap 13 mmol/L; Blood Urea Nitrogen 13 mg/dL (9-20); Calcium 9.3 mg/dL (8.4-10.2); Carbon Dioxide 23 mmol/L (22-30); Chloride 105 mmol/L (98-107); Glucose 98 mg/dL (74-99); Non-African American GFR(CKD) >90 (>60 ml/min/1.73 sqM); Potassium 4.5 mmol/L (3.5-5.1); Sodium 141 mmol/L (137-145)
--- NOTE | 2022-06-22 09:08 | CT ---
EXAMINATION TYPE: CT facial bones w con DATE OF EXAM: 06/22/2022 COMPARISON: 05/15/15 HISTORY: facial swelling left side CT DLP: 538.4 mGycm Automated exposure control for dose reduction was used. CONTRAST: CT scan of the facial bones is performed with IV Contrast, patient injected with 100 mL of Isovue 300 . TECHNIQUE: CT scan of the sinuses is performed without contrast, axial images are obtained, coronal r eformatted images are also reviewed. FINDINGS: 1.1 x 1.4 cm subperiosteal and apical abscess at the level of the left lateral incisor with anterior cortical destruction. Associated soft tissue edema and left facial swelling. Additional den vitor caries and apical abscess right lateral incisor. Dental caries at multiple level. Visualized portion of mastoid air cells show no abnormal opacification. The globes are intact bilate rally. Mucosal thickening of the maxillary sinuses. IMPRESSION: 1. Subperiosteal abscess with cortical defect at the level of the left lateral incisor left maxilla. 2. Apical abscesses involving the left and right lateral incisors. 3. Multiple levels of dental caries.
[2022-06-22] MEDS ORDERED: DEXAMETHASONE SOD PHOSPHATE 4 MG/ML 1 ML VIAL IVP PRN (10:42)
[2022-06-22] MEDS ORDERED: MORPHINE SULFATE 4 MG/ML SYRINGE IVP STA (10:55)
[2022-06-22] MEDS ORDERED: KETOROLAC 15 MG/ML 1 ML VIAL IVP STA (10:55)
[2022-06-22] MEDS ORDERED: ACETAMINOPHEN TAB 325 MG TAB PO PRN (10:56)
[2022-06-22] MEDS ORDERED: NALOXONE 0.4 MG/ML 1 ML VIAL IV PRN (10:56)
--- NOTE | 2022-06-22 10:59 | ED ---
General Adult HPI - General Chief complaint: Dental/Oral Stated complaint: tooth absess Time Seen by Provider: 06/22/22 08:00 Source: patient, RN notes reviewed, old records reviewed Mode of arrival: ambulatory Limitations: no limitations - History of Present Illness Initial comments: Patient is a 36-year-old male with past medical history remarkable for hypertension, who presents emergency Department complaining of a toothache/infection. Has been ongoing for multiple days but over the last 3 days has noticed worsening swelling and pain over the left upper molars and left cheek. Presents for further evaluation this time. Has not seen a dentist. Has not been on antibiotics. Denies any difficulty breathing. Denies any difficulty swallowing. Denies any tongue swelling. Denies any chest pain or shortness of breath. Denies any known fevers or chills. Denies any abdominal pain, nausea, vomiting. Presents for further evaluation at this time. - Related Data Home Medications Medication Instructions Recorded Confirmed HYDROcodone/APAP 7.5-325MG [[place] 1 tab PO BID 09/23/20 06/22/22 7.5-325] Omeprazole [PriLOSEC] 20 mg PO DAILY PRN 09/23/20 06/22/22 traZODone HCL [Desyrel] 50 mg PO HS 09/23/20 06/22/22 Naproxen [Naprosyn] 500 mg PO Q12H 11/13/20 06/22/22 Budesonide/Formoterol Fumarate 2 puff INHALATION RT-BID 06/22/22 06/22/22 [Symbicort 160-4.5 Mcg Inhaler] Cyclobenzaprine [Flexeril] 5 mg PO HS 06/22/22 06/22/22 DULoxetine HCL [Cymbalta] 30 mg PO BID 06/22/22 06/22/22 Divalproex Sodium [Depakote] 1,000 mg PO HS 06/22/22 06/22/22 Divalproex Sodium [Depakote] 500 mg PO DAILY 06/22/22 06/22/22 Mirtazapine 30 mg PO HS 06/22/22 06/22/22 Sildenafil Citrate 100 mg PO DAILY PRN 06/22/22 06/22/22 Vitamin D3 50,000iu 1,250 mcg PO Q30D 06/22/22 06/22/22 rOPINIRole HCL [Requip] 1 mg PO HS 06/22/22 06/22/22 traMADol HCL 50 mg PO BID 06/22/22 06/22/22 Allergies Allergy/AdvReac Type Severity Reaction Status Date / Time No Known Allergies Allergy Verified 06/22/22 10:34 Review of Systems ROS Statement: Those systems with pertinent positive or pertinent negative responses have been documented in the HPI. Review of Systems: CONST: Denies fever EYES: Denies blurry vision ENT: Endorses dental pain/infection. C/V: Denies Chest pain RESP: Denies shortness of breath GI: Denies abdominal pain : Denies dysuria SKIN: Denies rash. MSK: Denies joint pain. NEURO: Denies headache ROS Other: All systems not noted in ROS Statement are negative. Past Medical History Past Medical History: COPD, GERD/Reflux, Osteoarthritis (OA) Additional Past Medical History / Comment(s): "difficulty swallowing and spitting out acid reflux" SCOLIOSIS,ARTHRITIS,HEADACHES History of Any Multi-Drug Resistant Organisms: MRSA Date of last positivie culture/infection: 2014 MDRO Source:: thigh Additional Past Surgical History / Comment(s): MOLE REMOVED Past Anesthesia/Blood Transfusion Reactions: No Reported Reaction Additional Past Anesthesia/Blood Transfusion Reaction / Comment(s): no hx blood transfusion Past Psychological History: ADD/ADHD, Anxiety, Bipolar Smoking Status: Current every day smoker Past Alcohol Use History: None Reported Past Drug Use History: None Reported - Past Family History Mother Family Medical History: No Reported History General Exam - General Exam Comments Initial Comments: General: Appears in no acute distress. HEAD: Normal with no signs of head trauma. EYES: PERRLA, EOMI, conjunctiva normal, no discharge. ENT: Hearing grossly intact. Facial muscles function normally. Significant swelling located over the left cheek and left periorbitally. Tenderness palpation over the left maxillary sinus. Patient does have swelling located over the superior aspect of the jaw near a posterior molar. No obvious drainable abscess observed. No tongue swelling. Uvula is midline. No stridor auscultated. No floor the mouth swelling. RESPIRATORY: Clear breath sounds bilaterally. No wheezes, rales, or rhonchi. No respiratory distress. No hypoxia. C/V: Regular rate and rhythm. S1 and S2 auscultated, peripheral pulses 2+ and intact throughout ABD: Abd is soft, nontender, nondistended EXT: Normal range of motion, no obvious deformity SKIN: Erythema, swelling located over the left cheek, periorbitally. No induration. No obvious fluctuance. NEURO: Alert and oriented 4. Limitations: no limitations Course Vital Signs 06/22/22 06/22/22 06/22/22 07:57 10:33 11:29 Temperature 98.1 F 98.2 F Pulse Rate 97 95 89 Respiratory 16 18 18 Rate Blood Pressure 171/127 133/86 130/87 O2 Sat by Pulse 99 98 99 Oximetry Medical Decision Making - Medical Decision Making Based on the patient's presentation and physical exam, I'm concerned for left- sided facial infection for the patient. Does not appear to have any respiratory compromise. Is able to swallow. Source is likely tooth infection. Patient will be started on Unasyn and given a dose of IV steroids. We'll obtain a CT imaging of the face and neck. Also obtain infectious labs. Blood cultures were sent. He was in agreement this plan. No obvious drainable abscess. Vital signs within acceptable limits. Laboratory studies are remarkable for a slight leukocytosis of 12.0. Lactic acid is within acceptable limits. CT imaging revealed subperiosteal abscess with cortical defect at the left lateral incisor and left maxilla as well as apical abscesses involving the left and right lateral incisors. There are multiple dental caries. I did discuss the findings with the patient. I believe it is best to admit him to the hospital with IV antibiotics as well as further IV steroids and analgesia. He was in agreement this plan. I did speak with oral surgery doctor back first, who agreed to consult the patient. I discussed with him that he cannot reach his dentist until August due to high volume. He agreed to evaluate the patient was in agreement with the plan for admission for IV antibiotics and steroids. I did speak with Dr. Roland who accepted the patient. He was admitted in stable condition. We'll continue IV Unasyn, Decadron. - Lab Data Result diagrams: 06/22/22 08:27 06/22/22 08:27 Lab Results 06/22/22 06/22/22 06/22/22 Range/Units 08:27 08:27 08:27 WBC 12.0 H (3.8-10.6) k/uL RBC 5.38 (4.30-5.90) m/uL Hgb 16.2 (13.0-17.5) gm/dL Hct 45.5 (39.0-53.0) % MCV 84.6 (80.0-100.0) fL MCH 30.0 (25.0-35.0) pg MCHC 35.5 (31.0-37.0) g/dL RDW 13.0 (11.5-15.5) % Plt Count 228 (150-450) k/uL MPV 7.6 Neutrophils % 74 % Lymphocytes % 17 % Monocytes % 5 % Eosinophils % 2 % Basophils % 1 % Neutrophils # 8.9 H (1.3-7.7) k/uL Lymphocytes # 2.1 (1.0-4.8) k/uL Monocytes # 0.6 (0-1.0) k/uL Eosinophils # 0.3 (0-0.7) k/uL Basophils # 0.1 (0-0.2) k/uL Sodium 141 (137-145) mmol/L Potassium 4.5 (3.5-5.1) mmol/L Chloride 105 (98-107) mmol/L Carbon Dioxide 23 (22-30) mmol/L Anion Gap 13 mmol/L BUN 13 (9-20) mg/dL Creatinine 0.64 L (0.66-1.25) mg/dL Est GFR (CKD-EPI)AfAm >90 (>60 ml/min/1.73 sqM) Est GFR (CKD-EPI)NonAf >90 (>60 ml/min/1.73 sqM) Glucose 98 (74-99) mg/dL Plasma Lactic Acid Jd 0.9 (0.7-2.0) mmol/L Calcium 9.3 (8.4-10.2) mg/dL Disposition Clinical Impression: Dental abscess Disposition: ADMITTED IP TO THIS [facility] Condition: Stable Time of Disposition: 10:30
[2022-06-22] MEDS ORDERED: MORPHINE SULFATE 4 MG/ML SYRINGE IVP PRN (11:49)
[2022-06-22] MEDS: KETOROLAC 15 MG/ML 1 ML VIAL IVP SCH ×2 (14:07→18:23)
--- NOTE | 2022-06-22 14:57 | P.GSCN ---
History of Present Illness Consult date: 06/22/22 Reason for Consult: Dental abscess and decayed teeth maxillary mandibular Requesting physician: Edwin Roland History of present illness: 36-year-old male presents to the hospital with increased facial swelling. Patient reports he's been getting facial swelling and tooth pain for years now. Attempted to resolve at home with ibuprofen unsuccessfully. He reports pain has improved since admission. Patient has been seen at the local [facility] clinic but reports this clinic is not accepting new patients until August. Review of Systems As per history of present illness for all markers Past Medical History Past Medical History: COPD, GERD/Reflux, Osteoarthritis (OA) Additional Past Medical History / Comment(s): "difficulty swallowing and spitting out acid reflux" SCOLIOSIS,ARTHRITIS,HEADACHES bipolar depression anxiety History of Any Multi-Drug Resistant Organisms: MRSA Year Discovered:: 2014 MDRO Source:: thigh Additional Past Surgical History / Comment(s): MOLE REMOVED Past Anesthesia/Blood Transfusion Reactions: No Reported Reaction Additional Past Anesthesia/Blood Transfusion Reaction / Comm: no hx blood transfusion Past Psychological History: ADD/ADHD, Anxiety, Bipolar Smoking Status: Current every day smoker Past Alcohol Use History: None Reported Additional Past Alcohol Use History / Comment(s): started smoking at age 17, 1-2 ppd Past Drug Use History: None Reported, Marijuana Additional Drug Use History / Comment(s): uses marijuana occas. instructed to hold 24 hrs prior to procedure - Past Family History Mother Family Medical History: No Reported History Medications and Allergies Home Medications Medication Instructions Recorded Confirmed Type HYDROcodone/APAP 7.5-325MG [[place] 1 tab PO BID 09/23/20 06/22/22 History 7.5-325] Omeprazole [PriLOSEC] 20 mg PO DAILY PRN 09/23/20 06/22/22 History traZODone HCL [Desyrel] 50 mg PO HS 09/23/20 06/22/22 History Naproxen [Naprosyn] 500 mg PO Q12H 11/13/20 06/22/22 History Budesonide/Formoterol Fumarate 2 puff INHALATION RT-BID 06/22/22 06/22/22 History [Symbicort 160-4.5 Mcg Inhaler] Cyclobenzaprine [Flexeril] 5 mg PO HS 06/22/22 06/22/22 History DULoxetine HCL [Cymbalta] 30 mg PO BID 06/22/22 06/22/22 History Divalproex Sodium [Depakote] 1,000 mg PO HS 06/22/22 06/22/22 History Divalproex Sodium [Depakote] 500 mg PO DAILY 06/22/22 06/22/22 History Mirtazapine 30 mg PO HS 06/22/22 06/22/22 History Sildenafil Citrate 100 mg PO DAILY PRN 06/22/22 06/22/22 History Vitamin D3 50,000iu 1,250 mcg PO Q30D 06/22/22 06/22/22 History rOPINIRole HCL [Requip] 1 mg PO HS 06/22/22 06/22/22 History traMADol HCL 50 mg PO BID 06/22/22 06/22/22 History Allergies Allergy/AdvReac Type Severity Reaction Status Date / Time No Known Allergies Allergy Verified 06/22/22 10:34 Surgical - Exam Vital Signs Temp Pulse Resp BP Pulse Ox 98.1 F 97 16 171/127 99 06/22/22 07:57 06/22/22 07:57 06/22/22 07:57 06/22/22 07:57 06/22/22 07:57 Problem focused exam reveals decay of all of his teeth which are nonrestorable. It appears he is only had removal of the lower right quadrant from wisdom tooth to canine. He does have good mouth opening with moist mucous membranes. He has less than 1 cm vestibular swelling adjacent to teeth numbers 10, 11 and 12. Intraorally the tongue movement is good in the throat appears normal. Extraorally there is 1 cm of swelling of the left canine space with no ocular in volvement. Results Computed tomography scan reviewed showed the abscess eroding through the bone near the lateral incisor #10. Appears that the abscess was also involving tooth #11 and possibly 12. No airway impingement or involvement. There did seem to be some sinusitis associated with the anterior maxillary sinus on the left side this is consistent with abscess of this region most likely reactive. - Labs 06/22/22 08:27 06/22/22 08:27 Abnormal Lab Results - Last 24 Hours (Table) 06/22/22 06/22/22 Range/Units 08:27 08:27 WBC 12.0 H (3.8-10.6) k/uL Neutrophils # 8.9 H (1.3-7.7) k/uL Creatinine 0.64 L (0.66-1.25) mg/dL Diabetes panel 06/22/22 Range/Units 08:27 Sodium 141 (137-145) mmol/L Potassium 4.5 (3.5-5.1) mmol/L Chloride 105 (98-107) mmol/L Carbon Dioxide 23 (22-30) mmol/L BUN 13 (9-20) mg/dL Creatinine 0.64 L (0.66-1.25) mg/dL Glucose 98 (74-99) mg/dL Calcium 9.3 (8.4-10.2) mg/dL Calcium panel 06/22/22 Range/Units 08:27 Calcium 9.3 (8.4-10.2) mg/dL Pituitary panel 06/22/22 Range/Units 08:27 Sodium 141 (137-145) mmol/L Potassium 4.5 (3.5-5.1) mmol/L Chloride 105 (98-107) mmol/L Carbon Dioxide 23 (22-30) mmol/L BUN 13 (9-20) mg/dL Creatinine 0.64 L (0.66-1.25) mg/dL Glucose 98 (74-99) mg/dL Calcium 9.3 (8.4-10.2) mg/dL Adrenal panel 06/22/22 Range/Units 08:27 Sodium 141 (137-145) mmol/L Potassium 4.5 (3.5-5.1) mmol/L Chloride 105 (98-107) mmol/L Carbon Dioxide 23 (22-30) mmol/L BUN 13 (9-20) mg/dL Creatinine 0.64 L (0.66-1.25) mg/dL Glucose 98 (74-99) mg/dL Calcium 9.3 (8.4-10.2) mg/dL Assessment and Plan Assessment: Multiple dental abscesses most we on the upper left with maxillary sinus disease most likely reactive. Social barriers to treatment. Plan: No obvious airway impingement or preseptal involvement. The choice of antibiotics is appropriate given the likelihood of the odontogenic source of inf ection. Discussed with patient the plan would be to remove all of his teeth under IV sedation an outpatient setting. The patient was very excited to hear this and seemed like this was the way he wanted to go. Patient with later seek dentures but is looking to get his teeth removed as soon as possible. We do have availability in our clinic for an exam of this week or early next week. And he is to call upon discharge set up this exam. Time with Patient: Greater than 30
[2022-06-22] MEDS ORDERED: PANTOPRAZOLE 40 MG TABLET PO PRN (15:10)
[2022-06-22] MEDS: HEPARIN SODIUM,PORCINE/PF 5,000 UNIT/0.5 ML SYRINGE SQ SCH (16:37)
[2022-06-22] MEDS: AMPICILLIN-SULBACTAM 3 GM in SODIUM CHLORIDE 0.9% 100 ML IVPB SCH (16:37)
[2022-06-22] MEDS: SYMBICORT 160-4.5 MCG INHALER INHALATION SCH (20:25)
[2022-06-22] MEDS: HYDROcodone/APAP 7.5-325MG 1 EACH TAB PO SCH (20:42)
[2022-06-22] MEDS: DULoxetine HCL 30 MG CAPSULE.DR PO SCH (20:42)
[2022-06-22] MEDS: traMADol 50 MG TAB PO SCH (20:43)
[2022-06-22] MEDS: NAPROXEN 250 MG TAB PO SCH (20:43)
[2022-06-22] MEDS ORDERED: MIRTAZAPINE 15 MG TAB PO SCH (21:00)
[2022-06-22] MEDS ORDERED: traZODone HCL 50 MG TAB PO SCH (21:00)
[2022-06-22] MEDS ORDERED: CYCLOBENZAPRINE 5 MG TAB PO SCH (21:00)
[2022-06-22] MEDS ORDERED: DIVALPROEX 500 MG TABLET.DR PO SCH (21:00)
[2022-06-23] MEDS: KETOROLAC 15 MG/ML 1 ML VIAL IVP SCH ×3 (00:26→11:26)
[2022-06-23] MEDS: AMPICILLIN-SULBACTAM 3 GM in SODIUM CHLORIDE 0.9% 100 ML IVPB SCH ×2 (00:26→08:44)
[2022-06-23] MEDS: HEPARIN SODIUM,PORCINE/PF 5,000 UNIT/0.5 ML SYRINGE SQ SCH ×2 (00:27→08:43)
[2022-06-23] MEDS: SYMBICORT 160-4.5 MCG INHALER INHALATION SCH (07:41)
[2022-06-23 08:06] VITALS: BP 149/95; PULSE 77; RESP 16; TEMP 97.9
[2022-06-23] MEDS: NAPROXEN 250 MG TAB PO SCH (08:41)
[2022-06-23] MEDS: DULoxetine HCL 30 MG CAPSULE.DR PO SCH (08:42)
[2022-06-23] MEDS: traMADol 50 MG TAB PO SCH (08:44)
[2022-06-23] MEDS: HYDROcodone/APAP 7.5-325MG 1 EACH TAB PO SCH (08:44)
[2022-06-23] MEDS ORDERED: DIVALPROEX 500 MG TABLET.DR PO SCH (09:00)
[2022-06-23 09:11] LABS: Basophils # (A) 0.03 X 10*3/uL (0.00-0.10); Basophils % (A) 0.3 %; Eosinophils # (A) 0 X 10*3/uL (0.04-0.35); Eosinophils % (A) 0 %; HCT 43.3 % (39.6-50.0); HGB 14.7 g/dL (13.0-17.0); Immature Grans, Automated 0.3 %; Lymphocytes # (A) 1.94 X 10*3/uL (0.90-5.00); Lymphocytes % (A) 16.6 %; MCH 29.6 pg (27.0-32.0); MCHC 33.9 g/dL (32.0-37.0); MCV 87.3 fL (80.0-97.0); Mean Platelet Volume 10.2 fL (9.5-12.2); Monocytes # (A) 0.71 X 10*3/uL (0.20-1.00); Monocytes % (A) 6.1 %; NRBC Per 100 WBC 0 /100 WBCS (0.0-0.0); Neutrophils # (A) 8.96 X 10*3/uL (1.80-7.70); Neutrophils % (A) 76.7 %; Platelet Count 314 X 10*3/uL (140-440); RBC 4.96 X 10*6/uL (4.40-5.60); RDW 12.5 % (11.5-14.5); WBC 11.67 X 10*3/uL (4.50-10.00)
[2022-06-23 09:18] LABS: African American GFR (CKD) 141.7 (60.0-200.0); Blood Urea Nitrogen 16.1 mg/dL (9.0-27.0); Calcium 9.4 mg/dL (8.7-10.3); Non-African American GFR(CKD) 122.3 (60.0-200.0); Potassium 4.8 mmol/L (3.5-5.5)
[2022-06-23] MEDS ORDERED: AMOXIC-POT CLAV 875-125MG 1 EACH TAB PO SCH (21:00)
--- NOTE | 2022-06-24 06:58 | HP ---
HISTORY AND PHYSICAL CHIEF COMPLAINT: Pain, swelling and redness in the left side of the face. HISTORY OF PRESENT ILLNESS: This 36-year-old white male has been has been having some dental trouble, which erupted into cellulitis over his left cheek and maxillary sinus abscess. REVIEW OF SYSTEMS: He has not had fever or chills, but he has had a lot of pain. He has had no nausea, vomiting, urinary complaints, diabetes, etc. He is allergic to Zoloft. He has been seeing another primary care doctor and he has been on several other medications. Past medical history, family history personal and social histories are otherwise unremarkable and noncontributory. He does smoke. PHYSICAL EXAMINATION: VITAL SIGNS: Blood pressure is 130/98 with a pulse of 80, respirations of 16, temperature 99. GENERAL: Appeared to be well developed, well nourished. HEAD, EARS, EYES, NOSE, MOUTH AND THROAT: Revealed intense swelling, redness, and tenderness in the left cheek and even his eye is slightly closed. There is no sign of orbital cellulitis. LYMPH NODES: Not enlarged. CHEST: Clear. CARDIAC: Normal. ABDOMEN: Soft, nontender. IMPRESSION: Left mandibular dental caries with facial cellulitis. PLAN: 1. Bedrest. 2. IV fluids. 3. IV antibiotics. 4. Oral Surgery consult. MMODL / IJN: [id number] /
--- NOTE | 2022-06-24 12:18 | DS ---
DISCHARGE SUMMARY CHIEF COMPLAINT: Cellulitis of the left cheek. HISTORY OF PRESENT ILLNESS AND PHYSICAL EXAMINATION: Details of this man's history and physical can be found in the initial workup. LABORATORY STUDIES: While he was in the hospital, he had laboratory studies, details of which can be found in the laboratory section of his chart. COURSE IN THE HOSPITAL: After admission, he was placed on bedrest on intravenous fluids and IV antibiotics. He was seen by Oral Surgery. The swelling and pain are much better the next day, it was felt he could be discharged. He will go home on Augmentin 875 twice a day, and he has an appointment with Oral Surgery to have extractions done in about a week. FINAL DIAGNOSIS: Multiple caries in the left mandibular arch with periapical abscesses and cellulitis of the left cheek. OPERATIONS: None. CONSULTATIONS: Oral Surgery. He is improved. MMVANESAL / SEBASTIAN: [id number] /
[2022-07-21] MEDS ORDERED: ERGOCALCIFEROL 1,250 MCG (50,000 IU) CAPSULE PO SCH (09:00)
== END 2022-06-23 12:37 | disposition home or self-care (01) ==
LOC: EC 07:55 → 6NMEDSUR 10:58
PROVIDERS: ADMIT Family Medicine; ATTEND Family Medicine
DX: K02.9 Dental caries, unspecified (principal); L03.211 Cellulitis of face; K04.7 Periapical abscess without sinus; J32.0 Chronic maxillary sinusitis; J44.9 Chronic obstructive pulmonary disease, unspecified; K21.9 Gastro-esophageal reflux disease without esophagitis; F90.9 Attention-deficit hyperactivity disorder, unspecified type; F41.9 Anxiety disorder, unspecified; F31.9 Bipolar disorder, unspecified; F17.200 Nicotine dependence, unspecified, uncomplicated; Z79.51 Long term (current) use of inhaled steroids; Z79.899 Other long term (current) drug therapy
CPT/HCPCS: 96366 ×2; 96372 ×2; 96376 ×2; 96361; 96365; 96375; 99284; 36415; 94640 ×2; 80048 ×2; 83605; 85025 ×2; 87040; 70487; G0378 ×2; J2270; J1100; J0295 ×2; J1885 ×2; Q9967; J1644 ×2